=== PATIENT | male | born 1955 | race African-American/Black ===

== ENCOUNTER 2017-07-17 07:58 | Outpatient (CLI) | payer BC ==
[2017-07-17 08:28] LABS: BASOPHILS % (AUTO) 0.6 % (0.0-2.0); EOSINOPHILS # (AUTO) 0.5 /CMM (0.0-0.7); EOSINOPHILS % (AUTO) 9.8 % (0.0-6.0); HEMATOCRIT 46 % (39-51); LYMPHOCYTES # (AUTO) 1.8 /CMM (0.8-4.8); LYMPHOCYTES % (AUTO) 36.8 % (20.0-44.0); MEAN CORPUSCULAR HEMOGLOBIN 31 PG (26.0-33.0); MEAN CORPUSCULAR HGB CONC 35 g/dl (31.0-36.0); MEAN CORPUSCULAR VOLUME 89 fL (80-96); MONOCYTES # (AUTO) 0.2 /CMM (0.1-1.30); MONOCYTES % (AUTO) 4.1 % (2.0-12.0); NEUTROPHILS # (AUTO) 2.4 /CMM (1.8-8.9); NEUTROPHILS % (AUTO) 48.7 % (43.0-81.0); PLATELET COUNT (AUTO) 238 /CMM (150-450); RDW COEFFICIENT OF VARIATION 12.7 (11.5-15.0); RED BLOOD CELL COUNT(AUTO) 5.21 MIL/uL (4.5-6.0); WHITE BLOOD COUNT (AUTO) 4.9 K/uL (4.3-11.0)
[2017-07-17 09:07] LABS: ALBUMIN 3.9 g/dL (3.4-5.0); BILIRUBIN,TOTAL 0.8 mg/dL (0.2-1.0); CALCIUM, SERUM 9.4 mg/dL (8.5-10.1); POTASSIUM 3.9 mmol/L (3.5-5.1); TOTAL PROTEIN, SERUM 8.1 g/dL (6.4-8.2)
[2017-07-17 09:10] LABS: APPEARANCE,URINE CLEAR (CLEAR); BILIRUBIN,URINE NEGATIVE (NEGATIVE); BLOOD, URINE NEGATIVE Ery/uL (NEGATIVE); COLOR,URINE YELLOW (YELLOW); KETONES,URINE NEGATIVE (NEGATIVE); LEUKOCYTE ESTERASE ,URINE NEGATIVE (NEGATIVE); NITRITE, URINE NEGATIVE (NEGATIVE); PH,URINE 6.5 (5.0-8.0); PROTEIN,URINE NEGATIVE (NEGATIVE); UGLUCOSE NEGATIVE (NEGATIVE)
[2017-07-17 09:22] LABS: FREE T4 (FREE THYROXINE) 0.9 ng/dL (0.76-1.46); PROSTATE SPECIFIC ANTIGEN SCR 0.57 ng/mL (0.00-4.00); THYROID STIMULATING HORMONE 1.754 uIU/mL (0.358-3.74); URIC ACID 5.2 mg/dL (2.6-7.2)
[2017-07-18 11:10] LABS: *TESTOSTERONE, SERUM 356 ng/dL (264-916)
[2017-07-19 17:53] LABS: *TESTOSTERONE, FREE (DIRECT) 7.3 pg/mL (6.6-18.1)
== END 2017-07-17 23:59 | disposition home or self-care (01) ==
LOC: LAB 07:58
PROVIDERS: ATTEND Legal Medicine
DX: Z00.01 Encounter for general adult medical examination with abnormal findings (principal); R79.89 Other specified abnormal findings of blood chemistry
CPT/HCPCS: 36415; 80053-TC; 80061-TC; 81000-TC; 82306; 82728-TC; 82746; 83540-TC; 84153-TC; 84402; 84403; 84439-TC; 84443-TC; 84550-TC; 85025-TC

== ENCOUNTER 2018-02-05 11:26 | Emergency (ER) | payer BC, OTHER ==
[~2018-02-05] VITALS: Ht 180.3 cm; Wt 102.1 kg
[2018-02-05] MEDS ORDERED: TETRACAINE HCL/PF 0.5% UD 2 ML BOTTLE LEFTEYE ONE (12:00)
[2018-02-05] MEDS ORDERED: FLUORESCEIN SODIUM OPHTH 1 EA STRIP OP ONE (12:00)
[2018-02-05] MEDS ORDERED: TETRACAINE HCL/PF 0.5% UD 2 ML BOTTLE ONE (12:17)
[2018-02-05] MEDS ORDERED: FLUORESCEIN SODIUM OPHTH 1 EA STRIP ONE (12:17)
--- NOTE | 2018-02-05 13:00 | NUR ---
PATIENTS LEFT EYE IRRIGATION WITH NS 1000ML
--- NOTE | 2018-02-05 14:02 | NUR ---
CALLED THE OFFICE OF DR. CARRINGTON AND A PAGE WAS SENT OUT TO HIM
--- NOTE | 2018-02-05 14:38 | NUR ---
SECOND ROUND PATIENTS LEFT EYE IRRIGATION WITH NS 1000ML
--- NOTE | 2018-02-05 15:50 | NUR ---
Per Dr Abdi's office, they don't take workcomp insurance. Spoke with Jay Cutler about the situation and told me to inform the patient to use his personal insurance and the hospital will reimburse him after.
--- NOTE | 2018-02-05 16:00 | NUR ---
Patient was referred to Dr Abdi and will go to his clinic today.
--- NOTE | 2018-02-05 16:07 | NUR ---
Patient discharged to home in stable condition. Written and verbal after care instructions given. Patient verbalizes understanding of instruction.
[2018-02-05 16:08] VITALS: BP 142/92
== END 2018-02-05 16:09 | disposition home or self-care (01) ==
LOC: ER 11:27
DX: Z77.098 Contact with and (suspected) exposure to other hazardous, chiefly nonmedicinal, chemicals (principal); J45.909 Unspecified asthma, uncomplicated
CPT/HCPCS: A4606; J7030; Z7610